=== PATIENT | male | born 1955 | race African-American/Black ===

== ENCOUNTER 2019-07-29 00:31 | Inpatient (IN) ==
[2019-07-29] MEDS ORDERED: hydrALAZINE 20 MG/1 ML VIAL IV STA (00:54)
[2019-07-29] MEDS ORDERED: SODIUM CHLORIDE 0.9% 500 ML IV STA (00:54)
[2019-07-29] MEDS ORDERED: MORPHINE 4 MG/1 ML VIAL IV STA (00:54)
[2019-07-29] MEDS ORDERED: KETOROLAC 30 MG/1 ML VIAL IV STA (00:54)
[2019-07-29] MEDS ORDERED: ONDANSETRON 4 MG/2 ML VIAL IV STA (00:54)
[2019-07-29 01:19] LABS: Basophils % 0.2 % (0.0-0.8); Eosinophils # 0.3 10*3/uL (0.0-0.87); Eosinophils % 2.8 % (0.00-10.9); Hematocrit 36.8 VOL% (42.0-52.0); Hemoglobin 11.5 GM/DL (14.0-18.0); Immature Granulocytes % 0.2 %; Immature Granulocytes Absolute 0.02 #; Lymphocytes # 1.4 10*3/uL (1.4-4.0); Lymphocytes % 14.6 % (21.2-54.2); Mean Corpuscular HGB Conc 31.3 GM/DL (32-36); Mean Corpuscular Volume 86.4 FL (87-102); Mean Platelet Volume 11.2 FL (9.6-12.0); Monocytes % 15.4 % (1.7-12.7); Neutrophils % 66.8 % (38.7-73.9); Platelet Count 207 T/CUMM (130-400); Red Blood Count 4.26 MC/CUMM (3.8-5.5); Red Cell Distribution Width 17.6 % (9.3-17.3); White Blood Count 9.5 T/CUMM (4-12)
[2019-07-29 01:39] LABS: Alanine Aminotransferase 27 U/L (16-61); Albumin 3.5 G/DL (3.4-5.0); Alkaline Phosphatase 55 U/L (45-117); Amylase 72 U/L (25-115); Aspartate Amino Transferase 14 U/L (0-37); Bilirubin,Total < 0.39 MG/DL (0.2-1.0); Blood Urea Nitrogen 32 MG/DL (7-18); Calcium 7.7 MG/DL (8.5-10.1); Estimated Glom Filtration Rate 34 ML/MIN; Glucose 109 MG/DL (74-106); Osmolality,Calculated 293.8 MOS/KG (273-304); Total Protein 6.7 G/DL (6.4-8.3)
[2019-07-29] MEDS ORDERED: MAGNESIUM SULF RIDER 2 GM in PREMIX 1 EACH IV STA (02:19)
[2019-07-29] MEDS ORDERED: cefTRIAXone 1,000 MG in SODIUM CHLORIDE 0.9% 100 ML IV STA (02:50)
[2019-07-29 05:12] LABS: Apearance,Urine CLEAR (Clear); Bilirubin,Urine Negative (Negative); Blood, Urine Moderate mg/dL (Negative); Glucose,Urine (UA) Negative (Negative); Ketones,Urine Negative (Negative); Nitrite,Urine Negative (Negative); Protein,Urine Negative; RBC,Urine 6 /HPF (0-4); Squamous Epithelial Cell,Urine Occasional /HPF (0-10); Urine Color Yellow (Yellow); Urine Specific Gravity 1.008 (1.001-1.035); Urine Urobilinogen < 2.0 EU/DL (0.2-1.0); WBC,Urine <1 /HPF (0-6)
[2019-07-29] MEDS ORDERED: DOCUSATE SODIUM 100 MG CAPSULE PO PRN (05:18)
[2019-07-29] MEDS ORDERED: HYDROmorphone 2 MG/1 ML VIAL IV PRN (05:18)
[2019-07-29] MEDS ORDERED: ACETAMINOPHEN 325 MG TABLET PO PRN (05:18)
[2019-07-29] MEDS ORDERED: PROMETHAZINE 25 MG TABLET PO PRN (05:18)
[2019-07-29] MEDS ORDERED: ONDANSETRON 4 MG/2 ML VIAL IV PRN (05:18)
[2019-07-29] MEDS ORDERED: MAGNESIUM SULF RIDER 2 GM in PREMIX 1 EACH IV PRN (05:32)
[2019-07-29] MEDS ORDERED: MAGNESIUM SULF RIDER 4 GM in PREMIX 1 EACH IV PRN (05:32)
[2019-07-29] MEDS ORDERED: hydrALAZINE 20 MG/1 ML VIAL IV PRN (05:34)
[2019-07-29] MEDS: SODIUM CHLORIDE 0.9% 1,000 ML IV SCH ×2 (05:57→21:17)
[2019-07-29] MEDS ORDERED: CALCIUM GLUCONATE 1,000 MG in SODIUM CHLORIDE 0.9% 100 ML IV ONE (06:00)
[2019-07-29] MEDS: MEROPENEM 1,000 MG in SODIUM CHLORIDE 0.9% 100 ML IV SCH ×2 (06:36→18:30)
[2019-07-29] MEDS ORDERED: VANCOMYCIN INJ 2,000 MG in SODIUM CHLORIDE 0.9% 500 ML IV SCH (08:00)
[2019-07-29] MEDS ORDERED: INFLUENZA VIRUS VACCINE 0.5 ML SYRINGE IM ONE (09:00)
[2019-07-29] MEDS ORDERED: cefTRIAXone 1,000 MG in SYRINGE 1 EACH IV ONE (10:25)
[2019-07-29] MEDS: TAMSULOSIN 0.4 MG CAPSULE PO SCH ×2 (11:07→21:17)
[2019-07-29] MEDS ORDERED: PROPOFOL 200 MG/20 ML VIAL IV ONE (12:25)
[2019-07-29] MEDS ORDERED: MIDAZOLAM 2 MG/2 ML VIAL ONE (12:26)
[2019-07-29] MEDS ORDERED: GLYCOPYRROLATE 0.4 MG/2 ML VIAL ONE (12:26)
[2019-07-29] MEDS ORDERED: ROCURONIUM 100 MG/10 ML VIAL IV ONE (12:26)
[2019-07-29] MEDS ORDERED: LIDOCAINE 2% 5 ML VIAL ONE (12:26)
[2019-07-29] MEDS ORDERED: ePHEDrine 50 MG/ML AMP ONE (12:26)
[2019-07-29] MEDS ORDERED: SUCCINYLCHOLINE 200 MG/10 ML VIAL ONE (12:26)
[2019-07-29] MEDS ORDERED: fentaNYL 100 MCG/2 ML VIAL ONE (12:26)
[2019-07-29] MEDS ORDERED: SEVOFLURANE 1 UNIT/15 MINUTE INH ONE (12:26)
[2019-07-29] MEDS ORDERED: ONDANSETRON 4 MG/2 ML VIAL ONE (12:26)
[2019-07-30 05:15] LABS: Hematocrit 36.1 VOL% (42.0-52.0); Hemoglobin 11.1 GM/DL (14.0-18.0); Mean Corpuscular HGB Conc 30.7 GM/DL (32-36); Red Cell Distribution Width 17.9 % (9.3-17.3); White Blood Count 8.7 T/CUMM (4-12)
[2019-07-30 05:16] LABS: Basophils % 0.2 % (0.0-0.8); Eosinophils # 0.6 10*3/uL (0.0-0.87); Eosinophils % 7.4 % (0.00-10.9); Immature Granulocytes % 0.3 %; Immature Granulocytes Absolute 0.03 #; Lymphocytes # 1.2 10*3/uL (1.4-4.0); Lymphocytes % 14.2 % (21.2-54.2); Mean Platelet Volume 11.1 FL (9.6-12.0); Neutrophils % 66.9 % (38.7-73.9); Platelet Count 201 T/CUMM (130-400)
[2019-07-30 05:32] LABS: Calcium 8.1 MG/DL (8.5-10.1)
[2019-07-30] MEDS: MEROPENEM 1,000 MG in SODIUM CHLORIDE 0.9% 100 ML IV SCH (06:38)
[2019-07-30] MEDS: SODIUM CHLORIDE 0.9% 1,000 ML IV SCH (06:42)
[2019-07-30] MEDS: TAMSULOSIN 0.4 MG CAPSULE PO SCH (08:24)
[2019-07-30] MEDS ORDERED: FINASTERIDE 5 MG TABLET PO SCH (09:00)
[2019-07-30] MEDS ORDERED: VANCOMYCIN INJ 2,000 MG in SODIUM CHLORIDE 0.9% 500 ML IV SCH (11:00)
[2019-07-30] MEDS ORDERED: MAGNESIUM SULF RIDER 2 GM in PREMIX 1 EACH IV ONE (11:14)
[2019-07-30] MEDS ORDERED: CALCIUM GLUCONATE 1,000 MG in SODIUM CHLORIDE 0.9% 100 ML IV ONE (11:15)
[2019-07-30] MEDS ORDERED: MEROPENEM 500 MG in SODIUM CHLORIDE 0.9% 100 ML IV SCH (14:00)
[2019-07-30 15:18] VITALS: BP 151/77
== END 2019-07-30 13:05 | disposition home or self-care (01) | DRG 660 ==
LOC: N.ED 00:31 → N.EDINP 04:51 → N.4E 05:10
PROVIDERS: ADMIT Internal Medicine; ATTEND Internal Medicine